=== PATIENT | female | born 1950 | race Caucasian/White ===

== ENCOUNTER 2018-04-11 14:34 | Emergency (ER) | payer OTHER ==
[~2018-04-11] VITALS: Ht 175.3 cm; Wt 78.2 kg
[2018-04-11 14:42] VITALS: BP 151/99
[2018-04-11] MEDS ORDERED: ibuprofen tablet 400 MG TABLET PO ONE (15:50)
== END 2018-04-11 16:10 | disposition home or self-care (01) ==
LOC: ER 14:35
DX: M25.531 Pain in right wrist (principal); M79.641 Pain in right hand
CPT/HCPCS: 29125; 73130; 99283